=== PATIENT | male | born 2000 | race Caucasian/White ===

== ENCOUNTER 2022-05-04 18:49 | Emergency (ER) | payer OTHER, SELFPAY ==
[2022-05-04] VITALS (10 sets, daily range): BP systolic 135–177; BP diastolic 74–101; PULSE 78–87; RESP 20; TEMP 37.1; O2SAT 99–100; BMI 20.6
--- NOTE | 2022-05-04 | CRLHL7_ITS ---
For Patients: As a result of the Cures Act, medical imaging exams and procedure reports are released immediately into your electronic medical record. You may view this report before your referring provider. If you have questions, please contact your health care provider. INDICATION: Injury. TECHNIQUE: Three views of the right wrist. COMPARISON: None available. FINDINGS: No dislocation or acute fracture. Multiple irregular metallic foreign bodies of varying size in the soft tissues overlying the radial styloid, long finger proximal phalanx radial base, and ring finger middle phalanx volar aspect. Numerous additional tiny metallic foreign bodies scattered throughout the long finger soft tissues. IMPRESSION: Multiple retained metallic foreign bodies, as above. No acute osseous abnormality. Dictated by Yomi Dunlap MD @ 05/04/2022 7:56:20 PM Dictated by: Yomi Dunlap MD @ 05/04/2022 19:56:29 (Electronically Signed)
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
[2022-05-04] MEDS: TETANUS/DIPHTH/PERTUSSIS 0.5 ML SYRINGE IM (19:17)
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
[2022-05-04] MEDS: fentaNYL 100 MCG/2 ML inj 50 MCG IVP (19:58)
[2022-05-04] MEDS: ONDANSETRON 2 MG/ML inj 4 MG IVP (19:58)
== END 2022-05-04 20:10 | disposition short-term general hospital (02) ==
PROVIDERS: Emergency Provider Family Medicine
DX: T20.00XA Burn of unspecified degree of head, face, and neck, unspecified site, initial encounter (principal); S51.842A Puncture wound with foreign body of left forearm, initial encounter; W40.0XXA Explosion of blasting material, initial encounter
CPT/HCPCS: 71045; 73110; 90715; 94761; 96372; 96374; 96375; 99284; 99291; J2405; J3010

== ENCOUNTER 2022-05-04 20:07 | Outpatient (CLI) | payer OTHER, SELFPAY | END 2022-05-04 20:08 | disposition home or self-care (01) | LOC: AMB 05-25 11:17 | PROVIDERS: PCP Family Medicine; Visit Provider Family Medicine | DX: T20.16XA Burn of first degree of forehead and cheek, initial encounter (principal); S41.142A Puncture wound with foreign body of left upper arm, initial encounter; S21.149A Puncture wound with foreign body of unspecified front wall of thorax without penetration into thoracic cavity, initial encounter; S21.142A Puncture wound with foreign body of left front wall of thorax without penetration into thoracic cavity, initial encounter; S31.149A Puncture wound of abdominal wall with foreign body, unspecified quadrant without penetration into peritoneal cavity, initial encounter; S61.541A Puncture wound with foreign body of right wrist, initial encounter; S61.242A Puncture wound with foreign body of right middle finger without damage to nail, initial encounter; S61.244A Puncture wound with foreign body of right ring finger without damage to nail, initial encounter; W40.8XXA Explosion of other specified explosive materials, initial encounter; W26.8XXA Contact with other sharp object(s), not elsewhere classified, initial encounter; W45.8XXA Other foreign body or object entering through skin, initial encounter | CPT/HCPCS: A0425; A0427 ==

== ENCOUNTER 2022-05-15 13:15 | Outpatient (CLI) | payer OTHER, SELFPAY | END 2022-05-15 13:16 | disposition home or self-care (01) | LOC: WOUND 13:16 | PROVIDERS: PCP Family Medicine; Visit Provider Nurse Practitioner Family | DX: S31.141A Puncture wound of abdominal wall with foreign body, left upper quadrant without penetration into peritoneal cavity, initial encounter (principal); S31.144A Puncture wound of abdominal wall with foreign body, left lower quadrant without penetration into peritoneal cavity, initial encounter; S41.142A Puncture wound with foreign body of left upper arm, initial encounter; S41.042A Puncture wound with foreign body of left shoulder, initial encounter; W40.8XXA Explosion of other specified explosive materials, initial encounter; F84.5 Asperger's syndrome | CPT/HCPCS: 11042; 11043; 99213 ==

== ENCOUNTER 2022-05-15 14:55 | Outpatient (CLI) | payer OTHER, SELFPAY ==
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
== END 2022-05-15 14:56 | disposition home or self-care (01) ==
PROVIDERS: PCP Family Medicine; Visit Provider Nurse Practitioner Family
DX: S41.002A Unspecified open wound of left shoulder, initial encounter (principal)
CPT/HCPCS: 71045; 73030

== ENCOUNTER 2022-05-22 08:14 | Outpatient (CLI) | payer OTHER, SELFPAY | END 2022-05-22 08:15 | disposition home or self-care (01) | LOC: WOUND 08:14 | PROVIDERS: PCP Family Medicine; Visit Provider Nurse Practitioner Family | DX: S31.141A Puncture wound of abdominal wall with foreign body, left upper quadrant without penetration into peritoneal cavity, initial encounter (principal); S31.144A Puncture wound of abdominal wall with foreign body, left lower quadrant without penetration into peritoneal cavity, initial encounter; S41.142A Puncture wound with foreign body of left upper arm, initial encounter; S41.042A Puncture wound with foreign body of left shoulder, initial encounter; W40.8XXA Explosion of other specified explosive materials, initial encounter; F84.5 Asperger's syndrome | CPT/HCPCS: 11042 ==

== ENCOUNTER 2022-05-29 08:16 | Outpatient (CLI) | payer OTHER, SELFPAY | END 2022-05-29 08:17 | disposition home or self-care (01) | LOC: WOUND 08:16 | PROVIDERS: PCP Family Medicine; Visit Provider Physician Assistant Surgical | DX: S31.144A Puncture wound of abdominal wall with foreign body, left lower quadrant without penetration into peritoneal cavity, initial encounter (principal); S31.141A Puncture wound of abdominal wall with foreign body, left upper quadrant without penetration into peritoneal cavity, initial encounter; S41.142A Puncture wound with foreign body of left upper arm, initial encounter | CPT/HCPCS: 11042; 11043 ==

== ENCOUNTER 2022-06-05 08:23 | Outpatient (CLI) | payer OTHER, SELFPAY | END 2022-06-05 08:24 | disposition home or self-care (01) | LOC: WOUND 08:23 | PROVIDERS: PCP Family Medicine; Visit Provider Nurse Practitioner Family | DX: S31.141A Puncture wound of abdominal wall with foreign body, left upper quadrant without penetration into peritoneal cavity, initial encounter (principal); S41.142A Puncture wound with foreign body of left upper arm, initial encounter | CPT/HCPCS: 11042 ==

== ENCOUNTER 2022-06-12 08:21 | Outpatient (CLI) | payer OTHER, SELFPAY | END 2022-06-12 08:22 | disposition home or self-care (01) | LOC: WOUND 08:21 | PROVIDERS: PCP Family Medicine; Visit Provider Nurse Practitioner Family | DX: S31.141A Puncture wound of abdominal wall with foreign body, left upper quadrant without penetration into peritoneal cavity, initial encounter (principal); S41.142A Puncture wound with foreign body of left upper arm, initial encounter | CPT/HCPCS: 11042 ==

== ENCOUNTER 2022-06-19 08:30 | Outpatient (CLI) | payer OTHER, SELFPAY | END 2022-06-19 08:31 | disposition home or self-care (01) | LOC: WOUND 08:31 | PROVIDERS: PCP Family Medicine; Visit Provider Nurse Practitioner Family | DX: S31.141A Puncture wound of abdominal wall with foreign body, left upper quadrant without penetration into peritoneal cavity, initial encounter (principal); S41.142A Puncture wound with foreign body of left upper arm, initial encounter | CPT/HCPCS: 11042; 97597 ==

== ENCOUNTER 2022-06-29 08:14 | Outpatient (CLI) | payer OTHER, SELFPAY | END 2022-06-29 08:15 | disposition home or self-care (01) | LOC: WOUND 08:14 | PROVIDERS: PCP Family Medicine; Visit Provider Nurse Practitioner Family | DX: S31.144A Puncture wound of abdominal wall with foreign body, left lower quadrant without penetration into peritoneal cavity, initial encounter (principal); S31.141A Puncture wound of abdominal wall with foreign body, left upper quadrant without penetration into peritoneal cavity, initial encounter; S41.142A Puncture wound with foreign body of left upper arm, initial encounter | CPT/HCPCS: 99212 ==

== ENCOUNTER 2022-11-07 13:36 | Emergency (ER) | payer OTHER, SELFPAY ==
[2022-11-07 13:44] VITALS: BP 127/94; PULSE 88; RESP 18; TEMP 36.4; O2SAT 99; BMI 18.1
--- NOTE | 2022-11-07 14:26 | ED.NURSE ---
Pt provided UA and cooperative with blood draw.
[2022-11-07 14:36] LABS: Appearance Urine Clear (Clear); Bilirubin Urine Negative (Negative); Blood Urine Negative (Negative); Color Urine Yellow (Yellow); Glucose Urine Negative (Negative); Ketones Urine Negative (Negative); Leukocyte Esterase Urine Negative (Negative); Nitrite Urine Negative (Negative); Protein Urine Negative (Negative); Specific Gravity Urine 1.015 (1.000-1.030); Urobilinogen Urine 0.2 (0.2-1.0)
[2022-11-07 14:46] LABS: Amphetamine Screen Urine Negative (Negative); Barbiturate Screen Urine Negative (Negative); Benzodiazepines Screen Urine Negative (Negative); Cannabinoid Screen Urine Negative (Negative); Cocaine Screen Urine Negative (Negative); Methadone Screen Urine Negative (Negative); Methamphetamines Screen Urine Negative (Negative); Opiate Screen Urine Negative (Negative); Oxycodone Screen Urine Negative (Negative); Phencyclidine Screen Urine Negative (Negative); Tricyclic Antidepressant Urine Negative (Negative)
[2022-11-07 14:47] LABS: RBC Urine 0-2 (0-2); WBC Urine 0-2 (0-5)
[2022-11-07 14:57] LABS: Acetaminophen* < 10.0 ug/mL (10.0-30.0); Salicylate* < 1.0 mg/dL (1.0-10)
[2022-11-07 14:58] LABS: Ethanol* < 0.01 % (0.01-0.03)
--- NOTE | 2022-11-07 15:15 | ED.NURSE ---
Pt provided with meal tray, pt ate entire meal tray. Pt requesting a sudoku to do; pt provided with sudoku puzzle to complete.
--- NOTE | 2022-11-07 15:45 | ED.NURSE ---
Pt's dad, Carlos, called to check on pt. Pt verbal okay'd functional tester typewriters to update pt's dad on status and plan. Update provided. Phone numbers : Carlos (dad) # [phone], Nury (mom) # [phone].
--- NOTE | 2022-11-07 15:54 | ED.GENADULT ---
HPI - General Adult General Date Seen: 11/07/22 Chief complaint: Altered Mental Status Stated complaint: Mental Health Time Seen by Provider: 11/07/22 13:43 Source: patient Mode of arrival: other (Police) Limitations: no limitations History of Present Illness HPI narrative: Patient is a 22-year-old brought in by police due to concerns of suicidal ideation. He tells me that yesterday, he was feeling despondent over the break-up with his girlfriend that happened the day before, on Sunday night. They had been dating apparently for 2 and half years, and she abruptly ended the relationship. He does not provide further details on that. He does say that yesterday, her stepmother contacted him and told him that he if he tried to contact her again they would file a restraining order. He says that he has been trying to contact her to find out what he did wrong so that he does not make this a mistake again. He notes that he has autism and so he would find that information useful. In any case, he says yesterday all of this came to a head and he decided that he wanted to end things. He says he placed a call to police with a threat, hoping that they would track him down and use force, essentially suicide by law force. However, he says that they were unable to find him yesterday. They found him today at work, but by today he says that the feeling has passed and he is no longer suicidal. He did tell the nurse he had a backup plan yesterday of eating the coral in his aquarium which he says is toxic. He did not go through with that plan. He says that his suicidal things usually pass within a day or to. He has been hospitalized for suicidal ideation in the past, and says that that has typically been the pattern for him in the past as well. He takes a number of mental health related and autism related medications but he does not know the names. He lives with his parents and sister. He does not think that they are aware of what is been going on over the past day or 2, but says that generally everyone in the family gets along well. He drinks occasionally but denies any significant alcohol use, denies any other substance use. Denies any other self-harm behavior over the past couple of days. While he is still upset about the break-up, he denies any aggressive or injurious feelings toward his ex-girlfriend. Related Data Home Medications Medication Instructions Recorded Confirmed aripiprazole 2 mg tablet mg 05/04/22 05/10/22 citalopram 20 mg tablet mg 05/04/22 05/10/22 methylphenidate HCl 36 mg mg PO 05/04/22 05/10/22 tablet,extended release 24 hr (Concerta) olanzapine 10 mg tablet mg 05/04/22 05/10/22 olanzapine 5 mg tablet mg 05/04/22 05/10/22 Allergies Allergy/AdvReac Type Severity Reaction Status Date / Time No Known Drug Allergies Allergy Verified 11/07/22 13:49 Review of Systems Status of ROS: Reports: 6 or more systems reviewed and unremarkable except as noted in History and below [facility] Medical History Blast injury ?T14.8XXA - Other injury of unspecified body region, initial encounter (ICD-10) Social History Smoking Status: Never smoker How often do you have a drink containing alcohol: 2-3 times a week How many standard drinks containing alcohol do you have on a typical day: 1 or 2 How often do you have six or more drinks on one occasion: Never AUDIT-C Alcohol total score: 3 Non-prescribed substance use: denies use service: No Exam Narrative: Exam Narrative: Vital signs as noted above. In general, an alert, nontoxic male. Well groomed, good eye contact. Head: Normocephalic, atraumatic. Eyes: Pupils are equal reactive. Extraocular movements are full. Conjunctivae are normal. ENT: Mucous membranes are moist. Neck: Supple Heart: Regular rate and rhythm. Lungs: Clear bilaterally. No increased work of breathing, crackles or wheezes. Abdomen: Soft and nontender. Extremities: Well perfused. Neurologic: Patient is alert and oriented to person and place. Speech is fluent. Face is symmetric. Moves all extremities equally. Affect: Flat Skin: Warm and dry. Well perfused. Const: Vital Signs, click to edit/add: Vital Signs - 24 hr 11/07/22 13:44 11/07/22 17:55 Temperature 97.6 F Pulse Rate [Right Pulse Oximeter] 88 77 Respiratory Rate 18 Blood Pressure [Ri ght Upper Arm] 127/94 H 142/81 H Pulse Oximetry 99 97 Oxygen Delivery Me thod Room Air Room Air Documenting provider has reviewed patient's vital signs: yes Course Course Hospital Course: Patient spoke with the DEC cardiopulmonary technician and eeg tech. She and I are in agreement that at this time he does not pose a risk to himself or others. The issue seems to have been yesterday and he now seems to feel better. She was able to arrange counseling for him on , and he and his parents feel comfortable with him going home. Return at any time for new concerns. I did check labs given the that yesterday he was feeling significantly suicidal, Tylenol and aspirin levels are negative, drug screen and alcohol levels negative as well. Vital Signs Vital signs: Initial Vital Signs Temperature 97.6 F 11/07/22 13:44 Temperature Source Temporal Artery Scan 11/07/22 13:44 Pulse Rate 88 11/07/22 13:44 Pulse Rhythm Regular 11/07/22 13:44 Pulse Strength 3+ Normal 11/07/22 13:44 Respiratory Rate 18 11/07/22 13:44 Blood Pressure 127/94 H 11/07/22 13:44 Blood Pressure Mean 105 11/07/22 13:44 Blood Pressure Position Supine 11/07/22 13:44 Pulse Oximetry 99 11/07/22 13:44 Oxygen Delivery Method Room Air 11/07/22 13:44 Vital Signs Temperature 97.6 F 11/07/22 13:44 Pulse Rate 88 11/07/22 13:44 Respiratory Rate 18 11/07/22 13:44 Blood Pressure 127/94 H 11/07/22 13:44 Pulse Oximetry 99 11/07/22 13:44 Oxygen Delivery Method Room Air 11/07/22 13:44 Temperature 97.6 F 11/07/22 13:44 Pulse Rate 77 11/07/22 17:55 Respiratory Rate 18 11/07/22 13:44 Blood Pressure 142/81 H 11/07/22 17:55 Pulse Oximetry 97 11/07/22 17:55 Oxygen Delivery Method Room Air 11/07/22 17:55 Medical Decision Making Lab Data Labs: Lab Results 11/07/22 11/07/22 Range/Units 14:25 14:28 Urine Color Yellow (Yellow) Urine Appearance Clear (Clear) Urine pH 7.0 (5.0-8.5) Ur Specific [place] 1.015 (1.000-1.030) Urine Protein Negative (Negative) Urine Glucose (UA) Negative (Negative) Urine Ketones Negative (Negative) Urine Blood Negative (Negative) Urine Nitrite Negative (Negative) Urine Bilirubin Negative (Negative) Urine Urobilinogen 0.2 (0.2-1.0) Ur Leukocyte Esterase Negative (Negative) Urine RBC 0-2 (0-2) Urine WBC 0-2 (0-5) Ur Squamous Epith Cells None (None-Few) Urine Bacteria None (None) Salicylates < 1.0 L (1.0-10) mg/dL Urine Opiates Screen Negative (Negative) Ur Oxycodone Screen Negative (Negative) Urine Methadone Screen Negative (Negative) Ur Propoxyphene Screen Negative (Negative) Acetaminophen < 10.0 L (10.0-30.0) ug/mL Ur Barbiturates Screen Negative (Negative) U Tricyclic Antidepress Negative (Negative) Ur Phencyclidine Scrn Negative (Negative) Ur Amphetamines Screen Negative (Negative) U Methamphetamines Scrn Negative (Negative) U Benzodiazepines Scrn Negative (Negative) Urine Cocaine Screen Negative (Negative) U Marijuana (THC) Screen Negative (Negative) Ur Drug Screen Comment See Note Ethyl Alcohol < 0.01 L (0.01-0.03) % Discharge Plan Discharge Clinical Impression: History of suicidal ideation Patient Disposition: Home w/ Parent or Adult Condition: Improved Instructions: Depression (ED) Additional Instructions: Follow-up as planned with the counselor on . Return at any time if you have worsening difficulties. Prescriptions: No Action olanzapine 5 mg tablet Patient Comments: TAKE 1 TABLET BY MOUTH EVERY DAY DIRECTED olanzapine 10 mg tablet Patient Comments: TAKE 1 TABLET BY MOUTH EVERYDAY AT BEDTIME methylphenidate HCl [Concerta] 36 mg tablet extended release 24hr PO Patient Comments: TAKE 2 TABLETS BY MOUTH EVERY DAY aripiprazole 2 mg tablet Patient Comments: TAKE 1 TABLET BY MOUTH EVERY DAY IN THE MORNING. STOP MORNING OLANZAPINE citalopram 20 mg tablet Patient Comments: 1 TABLET DIRECTED DAILY Follow Up/Referrals: Colton Levi MD [Primary Care Provider] - Stand Alone Forms: [employer] Info Instructions
--- NOTE | 2022-11-07 16:43 | ED.NURSE ---
[facility] assessment started.
[2022-11-07 17:55] VITALS: BP 142/81; PULSE 77; O2SAT 97
== END 2022-11-07 17:58 | disposition home or self-care (01) ==
PROVIDERS: Emergency Provider Emergency Medicine; PCP Family Medicine
DX: R45.851 Suicidal ideations (principal)
CPT/HCPCS: 36415; 80143; 80179; 80306; 81001; 82077; 99284

== ENCOUNTER 2023-03-02 13:59 | Emergency (ER) | payer OTHER, SELFPAY ==
[2023-03-02 14:20] VITALS: BP 130/81; PULSE 89; RESP 18; TEMP 36.3; O2SAT 99; BMI 21.2
--- NOTE | 2023-03-02 16:11 | ED.NURSE ---
Report obtained from booking police officer, who states pt has been making threats of blowing up home and hurting himself and family. law enforcement officer states department is aware that bomb paraphernalia and dangerous substances are at pt's home. Tow Truck Driver and MD in room for pt assessment. Pt right away points at father and refuses to answer any questions asked of why pt is here today. Pt's father states pt recently hospitalized at [facility], and that family has been struggling with pt's emotional lability for last six months, when pt went through breakup with girlfriend. Pt states he does not have friends, and pt's father states he is on the autism spectrum and has struggled with relationships with friends. MD asks pt if he will plan on hurting himself and pt goes into extensive plans of how to blow up house. Pt also goes into extensive detail of how he has obtained dangerous and radioactive substances online (uranium, plutonium 129, and thorium) and states they are hidden in a secret spot in pt's home. When asked about breakup, pt is immediately tearful, and is unable to talk about relationship. When asked if pt wants to hurt others, he shakes head. MD states that it sounds like pt is having trouble coping emotionally with his past breakup, and pt nods. Pt's father is concerned about pt's medication dosing and that pt was taken off of all other medications, besides olanzapine 5 mg. Pt is hesitantly agreeable to plan to seek inpatient treatment to overcome current mental health crisis and then set up follow-up care for pt to continue processing past breakup and to continue taking care of his mental health. Pt agreeable to food, leaving urine sample, and having lab work done. Pt laying in bed, folding origami.
[2023-03-02 16:18] LABS: Amphetamine Screen Urine Negative (Negative); Barbiturate Screen Urine Negative (Negative); Benzodiazepines Screen Urine Negative (Negative); Cannabinoid Screen Urine Negative (Negative); Cocaine Screen Urine Negative (Negative); Methadone Screen Urine Negative (Negative); Methamphetamines Screen Urine Negative (Negative); Opiate Screen Urine Negative (Negative); Oxycodone Screen Urine Negative (Negative); Phencyclidine Screen Urine Negative (Negative); Tricyclic Antidepressant Urine Negative (Negative)
[2023-03-02 16:27] LABS: Basophils Absolute Auto 0.02 K/uL (0.00-0.30); Basophils Percent Auto 0.4 % (0.0-3.0); Eosinophils Absolute Auto 0.05 K/uL (0.00-0.50); Hematocrit 46.2 % (37.0-53.0); Hemoglobin* 15.7 gm/dL (13.5-17.5); Immature Granulocytes Abs Auto 0.01 K/uL (0.00-0.30); Immature Granulocytes Pct Auto 0.2 %; Lymphocytes Percent Auto 16.8 % (20-44); Mean Corpuscular HGB Conc 34 gm/dL (32-36); Mean Corpuscular Hemoglobin 29 pg (26-34); Mean Corpuscular Volume 84 fL (80-100); Monocytes Percent Auto 9.2 % (0.0-11.0); Neutrophils Percent Auto 72.4 % (42.0-72.0); Platelet Count* 175 K/uL (140-440); RDW Coefficient of Variation % 12.2 % (11.5-15.5); Red Blood Count 5.51 m/uL (4.30-5.90); White Blood Count* 4.77 K/uL (4.50-11.00)
--- NOTE | 2023-03-02 16:29 | ED.GENADULT ---
HPI - General Adult General Date Seen: 03/02/23 Chief complaint: Psychiatric Problem/Disorder Stated complaint: psych Time Seen by Provider: 03/02/23 14:38 History of Present Illness HPI narrative: 22-year-old male brought to the ER today by police on a transport hold. History is obtained in part from the police transport hold paperwork, in part from the patient's father, in part from the patient, and some from recent records from [facility]. He apparently has a history of autism spectrum dating back his entire life. Also possibly oppositional defiant disorder, depression, (or possibly bipolar per his father). He had been admitted him in [place] a couple of years ago. He has a long-term outpatient psychiatrist, in [place]. Patient and his father were not able to tell me the name, but from the records from [place] it looks like hisprovider is Betsey Anderson with [facility] in [place]. He has been on several psych meds recently. His father felt like they were making him worse. Father notes that he has had deteriorating mental health for about the past about 6 months or so? ever since he went through a break-up with his former girlfriend. he apparently had a mental health crisis that led to a to our stand off with police on February 13. Admitted at [facility] 02/14- Synopsis of her medical records as below: Apparently the patient had made some suicidal threats. Ultimately there was a 2 hour standoff with police before he went with them. [place] [facility] [place] transferred for inpatient mental health admission at [facility]. Father reports that while in the hospital in [place] he did well. They took him off most of his medications. He is now only on Zyprexa. Apparently they were treating him for alcohol abuse, also for his mental health disorders. Apparently the provider's joel [place] made a petition for commitment through the [facility], but that petition was denied. According to some of the records, the patient has a long-time fascination with explosives and has access to tools and materials that are potentially harmful to self or others He was discharged on February 19. Father notes that he has been struggling since discharge. He is now only on Zyprexa. He was started on a low-dose side of concerned that it might interact with some of the other meds that were still in his system. His father feels like we might need to increase his dose of Zyprexa. Apparently he had of 1st virtual visit with a new counselor, Una Maciel, through and [facility] clinic yesterday. It sounds like this visit was not helpful. Turns out this counselor is a chemical dependency counselor, not a mental health counselor. Patient is not willing or able to tell me what was discussed during the visit yesterday but apparently it was not helpful. The patient has a previous interactions with the [place] [employer]. Apparently the police called today and asked the patient to come down to the police station and to check in with them When he went there, the apparently took him into custody and brought him here to the [facility] on a police transport hold. According to the police transport hold, the patient is posing a risk to himself or others. He is apparently has access to expose the materials because he has a hobby of model [employer] making and [employer]. He also made a firearm to be trapped for his closet door a couple of weeks ago. He has also apparently Been able to order radioactive Thorium over the Internet and has it hit in somewhere in his house. per the police record, the patient released mustard gas in his home with an intent to kill himself and his family a month or 2 ago. He also rate a loaded gun tissue any 100 his closet on February 13. He apparently tried to injure himself with explosive on February 13. He purchased radioactive materials, including story M) and other materials for bone making. He had also threatened to kill himself and his family by reading the household appliance to cause an explosion. ( To me, the patient expresses that he has discovered that if the disabled the thermal couple on the furnace he will be able to open a captain airline pilot light, fill the house with gas, and have his home blow up by leaving a burning candle upstairs.) the patient also showed the police communications dispatcher a kaboom box today. also per the police transport hold, the patient also has displayed manipulative behavior in the past to avoid hospitalization /intervention. The police placed him on a hold and feel that he does pose a threat to himself and others. Per the patient, he says he does not want to be here. The thing we can do most help him is just let him go home again. he does not think any sort of mental treatment would be helpful. When we ask about how he is doing, he becomes tearful especially ask about the break-up with his girlfriend last October ( 4 months ago). Father endorses that he has had chronic suicidal ideation. Incongruously, the patient and his family were apparently preparing to leave on a family vacation to [place] today Related Data Home Medications Medication Instructions Recorded Confirmed aripiprazole 2 mg tablet mg 05/04/22 05/10/22 citalopram 20 mg tablet mg 05/04/22 05/10/22 methylphenidate HCl 36 mg mg PO 05/04/22 05/10/22 tablet,extended release 24 hr (Concerta) olanzapine 10 mg tablet mg 05/04/22 05/10/22 olanzapine 5 mg tablet mg 05/04/22 05/10/22 Allergies Allergy/AdvReac Type Severity Reaction Status Date / Time No Known Drug Allergies Allergy Verified 11/07/22 13:49 [facility] Medical History Blast injury ?T14.8XXA - Other injury of unspecified body region, initial encounter (ICD-10) Social History Smoking Status: Never smoker Do you use any of these nicotine containing products: None Second hand tobacco smoke exposure: No How often do you have a drink containing alcohol: 2-4 times a month How many standard drinks containing alcohol do you have on a typical day: 1 or 2 How often do you have six or more drinks on one occasion: Never AUDIT-C Alcohol total score: 2 Non-prescribed substance use: denies use service: No Exam Narrative: Exam Narrative: Constitutional: Appears well-developed and well-nourished. Alert. Conversant. Non toxic. HENT: Head: Atraumatic. Nose: Nose normal. Mouth/Throat: Oral mucosa is clear and moist. no trismus. Pharynx normal. Tonsils symmetric. No tonsillar enlargement, erythema, or exudate. Eyes: Conjunctivae normal. EOM normal. Pupils equal, round, and reactive to light. No scleral icterus. Neck: Normal range of motion. Neck supple. No tracheal deviation present. Cardiovascular: Normal rate, regular rhythm. No gallop. No friction rub. No murmur heard. Symmetric radial artery pulses Pulmonary/Chest: Effort normal. No stridor. No respiratory distress. No wheezes. No rales. No rhonchi . No tenderness. Abdominal: Soft. Bowel sounds normal. No distension. No mass. No tenderness. No rebound. No guarding. Musculoskeletal: RUE: Normal range of motion. No tenderness. No deformity LUE: Normal range of motion. No tenderness. No deformity RLE: Normal range of motion. No edema. No tenderness. No deformity LLE: Normal range of motion. No edema. No tenderness. No deformity Lymph: No cervical adenopathy. Neurological: Alert and oriented to person, place, and time. Normal strength. CN II-VII intact. No sensory deficit. GCS eye subscore is 4. GCS verbal subscore is 5. GCS motor subscore is 6. Normal coordination Skin: Skin is warm and dry. No rash noted. No pallor. Normal capillary refill. Psychiatric: Initially was somewhat defiant when brought in by police communications dispatcher. Then agreed to change into scrubs. When I enter the room his father is sitting in a chair by the door the patient is rolled onto his side, obviously not looking in his father. Patient makes a comment that he they are not family members anymore, indicating that he believes his father for being here in the ER today and that he does not want to be here. Most history is obtained from his father, as above. It sounds like he has had longstanding thoughts of suicide. He also has access to rocket tree material, explosive material, firearms, and radioactive material around the home. Father says he is concerned for the patient's safety as well as the safety of himself and other family members, but it sounds like this is all subacute to chronic. The says that patient has been in some ways doing better since he was discharged from [place] but in some ways still struggling. Despite all these swelling concerns, they are actually planning to leave for vacation today. Per the patient he is somewhat deflected of 1 and answering questions. He indicates that he has been able to obtain Thorium by ordering it over the Internet and also Plutonium. He says that he has been in person eating [employer] to order these materials. When I expressed my skepticism, father says that the patient's statements are true and that he does have those materials at home. Patient says that he is not suicidal today but that he has made plans to rhythm mom double up his house. It sounds like he wants to light a candle upstairs and leave the captain airline pilot light for the gas furnace on in the basement, this would allow the house to fill with gas, causing it to explode. Father confirms that a couple of weeks ago he did require firearm to be trapped his closet door. Apparently, the patient reiterated again today or lately and that the firearm still in place, however it is not loaded and therefore not actively dangerous. Const: Vital Signs, click to edit/add: Vital Signs - 24 hr 03/02/23 14:20 Temperature 97.4 F L Pulse Rate [Pulse Oximeter] 89 Respiratory Rate 18 Blood Pressure [Ri ght Upper Arm] 130/81 Pulse Oximetry 99 Oxygen Delivery Me thod Room Air Course Vital Signs Vital signs: Initial Vital Signs Temperature 97.4 F L 03/02/23 14:20 Temperature Source Temporal Artery Scan 03/02/23 14:20 Pulse Rate 89 03/02/23 14:20 Respiratory Rate 18 03/02/23 14:20 Blood Pressure 130/81 03/02/23 14:20 Blood Pressure Mean 97 03/02/23 14:20 Blood Pressure Position Supine 03/02/23 14:20 Pulse Oximetry 99 03/02/23 14:20 Oxygen Delivery Method Room Air 03/02/23 14:20 Vital Signs Temperature 97.4 F L 03/02/23 14:20 Pulse Rate 89 03/02/23 14:20 Respiratory Rate 18 03/02/23 14:20 Blood Pressure 130/81 03/02/23 14:20 Pulse Oximetry 99 03/02/23 14:20 Oxygen Delivery Method Room Air 03/02/23 14:20 Temperature 97.4 F L 03/02/23 14:20 Pulse Rate 89 03/02/23 14:20 Respiratory Rate 18 03/02/23 14:20 Blood Pressure 130/81 03/02/23 14:20 Pulse Oximetry 99 03/02/23 14:20 Oxygen Delivery Method Room Air 03/02/23 14:20 Medical Decision Making MDM Narrative Medical decision making narrative: 22-year-old male brought to the ER today by police on a police transport hold with concern that he poses a threat to himself and his family members. Has a complex past mental health history, as above. It sounds like he has has a longstanding diagnosis of autism spectrum disorder and also possibly depression or possibly bipolar. It does not sound like he has schizophrenia or psychosis. It sounds like his mental health is slowly deteriorating over the past several months ever since he had a break-up with his girlfriend. He has had some chronic suicidal thoughts and also has had plans but has never made specific action on them to commit suicide. He did however make a to be trap out of a firearm tissue to anyone who opens his closet door. He seems to lack insight about the dangerousness of this activity (for instance, if it were to trigger an accidental discharge bleeding to accidental injury). He has also been researching ways to follow-up as house and kill himself and his family. His father also endorses that he has significant intelligence and does have the ability to follow through on his plans. However it is unclear whether he would truly act. Reviewed today it sounds like he came to please attention today after he had an interaction with a new therapist yesterday. Police brought him here and are expecting their concern for his safety and that of his family. They feel that he needs a hold and inpatient treatment. The patient is initially very withdrawn and not providing much history. When he has become more interactive he is somewhat minimizing his symptoms. He tries to bargain saying that he will turn over his firearm and his Thorium to his father. However I think these are attempts at manipulation. He is very withdrawn and not really willing to participate in his care. His father indicates that he has had trouble following through with outpatient treatments in the past. The patient was seen by [facility]. That provider and myself both have misgivings. We believe this patient does pose a threat to himself and his family. Therefore we did place him on a 72 hour hold here in the ER tonight on 03/02. Laboratory workup was undertaken. It is reassuring. With reasonable clinical compensate think the patient is medically clear for inpatient mental health admission. We have faxed information to the inpatient mental health treatment facility at [facility] (where the patient was recently hospitalized). Due to IT difficulties, their response has been delayed. We are awaiting the response. We are told that they do have a bed and may potentially be able to accept this patient. DEC counselor is also calling other facilities in the region to see about other availability. At this time the patient and his family are aware that he will be boarding here in the ER until an appropriate inpatient mental health placement can be arranged. Discussed with my oncoming partner, Dr. Kaur. He will monitor the patient here in the ER and tell appropriate inpatient mental health placement can be arranged. Lab Data Labs: Lab Results 03/02/23 03/02/23 Range/Units 16:00 16:20 WBC 4.77 (4.50-11.00) K/uL RBC 5.51 (4.30-5.90) m/uL Hgb 15.7 (13.5-17.5) gm/dL Hct 46.2 (37.0-53.0) % MCV 84 (80-100) fL MCH 29 (26-34) pg MCHC 34 (32-36) gm/dL RDW Coeff of Jaqueline 12.2 (11.5-15.5) % Plt Count 175 (140-440) K/uL Neut % (Auto) 72.4 H (42.0-72.0) % Lymph % (Auto) 16.8 L (20-44) % [place] % (Auto) 9.2 (0.0-11.0) % Eos % (Auto) 1.0 (0.0-7.0) % Baso % (Auto) 0.4 (0.0-3.0) % Neut # (Auto) 3.50 (1.7-7.0) K/uL Lymph # (Auto) 0.80 L (0.90-2.90) K/uL [place] # (Auto) 0.40 (0.00-0.90) K/UL Eos # (Auto) 0.05 (0.00-0.50) K/uL Baso # (Auto) 0.02 (0.00-0.30) K/uL Abs Immat Gran (auto) 0.01 (0.00-0.30) K/uL Imm/Tot Granulo (auto) 0.2 % Sodium 140 (135-149) mmol/L Potassium 4.2 (3.6-5.1) mmol/L Chloride 104 (96-114) mmol/L Carbon Dioxide 29 (20-32) mmol/L Anion Gap 7 (7-15) mEq/L BUN 14 (5-24) mg/dL Creatinine 0.8 (0.5-1.5) mg/dL Estimated Creat Clear 155.29 Estimated GFR 127 ml/min Glucose 67 (60-115) mg/dL Calcium 10.0 (8.4-10.6) mg/dL Total Bilirubin 1.7 H (0.1-1.5) mg/dL AST 25 (12-35) U/L ALT 22 (4-50) U/L Alkaline Phosphatase 69 (40-150) U/L Total Protein 8.0 (6.0-8.3) g/dL Albumin 4.8 (3.3-5.0) g/dL Salicylates < 1.0 L (1.0-10) mg/dL Urine Opiates Screen Negative (Negative) Ur Oxycodone Screen Negative (Negative) Urine Methadone Screen Negative (Negative) Ur Propoxyphene Screen Negative (Negative) Acetaminophen < 10.0 L (10.0-30.0) ug/mL Ur Barbiturates Screen Negative (Negative) U Tricyclic Antidepress Negative (Negative) Ur Phencyclidine Scrn Negative (Negative) Ur Amphetamines Screen Negative (Negative) U Methamphetamines Scrn Negative (Negative) U Benzodiazepines Scrn Negative (Negative) Urine Cocaine Screen Negative (Negative) U Marijuana (THC) Screen Negative (Negative) Ur Drug Screen Comment See Note Ethyl Alcohol < 0.01 L (0.01-0.03) % Discharge Plan Discharge Clinical Impression: Suicidal ideation, Autism Prescriptions: No Action olanzapine 5 mg tablet Patient Comments: TAKE 1 TABLET BY MOUTH EVERY DAY DIRECTED olanzapine 10 mg tablet Patient Comments: TAKE 1 TABLET BY MOUTH EVERYDAY AT BEDTIME methylphenidate HCl [Concerta] 36 mg tablet extended release 24hr PO Patient Comments: TAKE 2 TABLETS BY MOUTH EVERY DAY aripiprazole 2 mg tablet Patient Comments: TAKE 1 TABLET BY MOUTH EVERY DAY IN THE MORNING. STOP MORNING OLANZAPINE citalopram 20 mg tablet Patient Comments: 1 TABLET DIRECTED DAILY Follow Up/Referrals: Colton Levi MD [Primary Care Provider] -
[2023-03-02 16:31] LABS: Slide Review Reflex No
[2023-03-02 16:45] LABS: Albumin* 4.8 g/dL (3.3-5.0)
[2023-03-02 16:46] LABS: Chloride* 104 mmol/L (96-114); Potassium* 4.2 mmol/L (3.6-5.1); Sodium* 140 mmol/L (135-149)
[2023-03-02 16:48] LABS: Alkaline Phosphatase* 69 U/L (40-150); Anion Gap 7 mEq/L (7-15); Aspartate Amino Transferase* 25 U/L (12-35); Bilirubin Total* 1.7 mg/dL (0.1-1.5); Blood Urea Nitrogen* 14 mg/dL (5-24); Carbon Dioxide* 29 mmol/L (20-32); Creatinine* 0.8 mg/dL (0.5-1.5); Est. Creatinine Clearance* 155.29; Estimated Glomerular Filt Rate 127 ml/min
[2023-03-02 16:49] LABS: Alanine Aminotransferase* 22 U/L (4-50); Glucose* 67 mg/dL (60-115)
[2023-03-02 16:55] LABS: Acetaminophen* < 10.0 ug/mL (10.0-30.0); Ethanol* < 0.01 % (0.01-0.03); Salicylate* < 1.0 mg/dL (1.0-10)
--- NOTE | 2023-03-02 17:00 | ED.NURSE ---
Per pt and pt family, pt's therapist is CYNTHIA Gann at [facility] ([phone]).
--- NOTE | 2023-03-02 17:52 | ED.NURSE ---
DEC assessment completed. Mother and father at bedside. Drinks offered. Pt ate dinner and is laying in bed, drinking orange juice. Pt showing aligner typewriter sea turtle origami.
--- NOTE | 2023-03-02 18:22 | ED.NURSE ---
72 hour hold placed by . Pt's rights read to pt and signed. Call to [facility], pt's last inpatient facility ([phone]), to discuss placement option. Paperwork faxed to facility ([phone]) for review. Pt pleasant, in room with family, and aware of plan for inpatient hospitalization.
[2023-03-02 21:02] VITALS: BP 117/89; PULSE 64; RESP 18; O2SAT 97
--- NOTE | 2023-03-02 21:20 | ED.NURSE ---
Pt's mother wondering if pt can take night medication (zyprexa 5 mg). Okayed with . Juice and milk brought in to pt and family. Family updated that [facility] is still reviewing on possible placement. Pt pleasant and asks politely for drawing sheets and sudoku.
--- NOTE | 2023-03-02 21:34 | ED.NURSE ---
Call to [facility] for DEC assessment. States they will fax over shortly.
--- NOTE | 2023-03-02 22:12 | ED.NURSE ---
DEC assessment faxed to [facility]. [facility] still reviewing and will update us on placement once they review assessment.
[2023-03-02 23:00] VITALS: TEMP 37.1
[2023-03-02 23:43] LABS: Appearance Urine Clear (Clear); Bilirubin Urine Negative (Negative); Blood Urine Negative (Negative); Color Urine Yellow (Yellow); Glucose Urine Negative (Negative); Ketones Urine Negative (Negative); Leukocyte Esterase Urine Negative (Negative); Nitrite Urine Negative (Negative); Protein Urine Negative (Negative); Specific Gravity Urine 1.015 (1.000-1.030); Urobilinogen Urine 0.2 (0.2-1.0); pH Urine 6.5 (5.0-8.5)
[2023-03-02 23:49] LABS: SARS PCR* Negative SARS-CoV-2 (Negative)
--- NOTE | 2023-03-03 00:08 | ED.NURSE ---
[facility] declined. [facility] reviewing pt's reports. Pt's dad at bedside. Pt brought hot cocoa and cereal, watching TV with dad.
--- NOTE | 2023-03-03 00:56 | ED.NURSE ---
[facility] unable to take pt at this time d/t shortage of staff to review placement. Instructed to call back at [phone] ([phone]) and let them know if we are still looking for placement. They will review at that time. [facility] states they can review again on 03/03 and may have openings. [facility] currently closed, waitlisting pts. Pt and pt's father state they do not want to go back to [facility]' d/t bad previous experience.
[2023-03-03 01:30] VITALS: BP 94/53; PULSE 66; RESP 12; TEMP 36.6; O2SAT 95
[2023-03-03 10:35] VITALS: BP 105/63; PULSE 62; RESP 16; TEMP 37.7; O2SAT 98
--- NOTE | 2023-03-03 11:34 | CRLHL7_ITS ---
For Patients: As a result of the Century Cures Act, medical imaging exams and procedure reports are released immediately into your electronic medical record. You may view this report before your referring provider. If you have questions, please contact your health care provider. Indication: Altered mental status. Technique: CT of the brain was performed without intravenous contrast. Comparison: None relevant available at this institution. Findings: No acute blurring of the garcía-white differentiation. There is no intracranial hemorrhage. The ventricles are proportionate to the cerebral sulci. The 4th ventricle is midline. Basal cisterns appear patent. No abnormal extra-axial fluid collection identified. There is no intracranial mass, mass effect or midline shift identified. No depressed calvarial fracture. Impression: No acute intracranial process. Please note that all CT scans at this facility use dose modulation, iterative reconstruction, and/or weight-based dosing when appropriate to reduce radiation dose to as low as reasonably achievable. Dictated by Shukri Mcneill MD @ 03/03/2023 12:46:18 PM (Electronically Signed)
--- NOTE | 2023-03-03 11:54 | ED.NURSE ---
was told that there is very limited mental health beds in the state and [facility] may be his only possibility. family concerned about something being wrong like a brain tumor or physical type imbalance causing his behavior. dr sexton did order a ct scan to help with ruling this out. when asked about his thoughts of ending his life he shakes his head no, father shakes yes.
[2023-03-03 14:28] VITALS: BP 113/80; PULSE 77; RESP 18; TEMP 36.5; O2SAT 99
--- NOTE | 2023-03-03 17:17 | ED.NURSE ---
has ordered a meal. aware that he will be leaving around 2030. Tatiana will be given tonight-own med, and father has been keeping safe; will send this with transport. declined offer of shower.
--- NOTE | 2023-03-03 20:22 | ED.NURSE ---
Pt took one 5mg tab Zyprexa before leaving with ambulance crew.
--- NOTE | 2023-03-03 20:41 | ED.NURSE ---
Pt transferring with [facility] crew to [place] for mental health care. Report was given and pt items were also given to [facility] crew. Vitals were taken on pt and pt is now comfortable with transferring to [place] for care. Parents are with pt before he transfers and they will [facility] in the morning for an update.
--- NOTE | 2023-03-03 20:46 | ED.NURSE ---
called report to the needs department at [facility] and to let them know that patient was on his way to them at this time. Pt is going to [address] [facility] nurse is TOBI Soliz.
== END 2023-03-03 20:50 | disposition other institution (70) ==
PROVIDERS: Emergency Medicine Emergency Medical Services; Emergency Provider Emergency Medicine; PCP Family Medicine
DX: R45.851 Suicidal ideations (principal); F84.0 Autistic disorder
CPT/HCPCS: 36415; 70450; 80053; 80143; 80179; 80306; 81003; 82077; 84443; 85025; 87635; 99284; 99285

== ENCOUNTER 2023-04-10 13:22 | Outpatient (CLI) | payer OTHER, SELFPAY | END 2023-04-10 13:23 | disposition home or self-care (01) | PROVIDERS: PCP Family Medicine; Visit Provider Family Medicine | DX: Z01.818 Encounter for other preprocedural examination (principal); F32.A Depression, unspecified; Z13.29 Encounter for screening for other suspected endocrine disorder; Z13.21 Encounter for screening for nutritional disorder | CPT/HCPCS: 82306; 82652; 84443 ==

== ENCOUNTER 2025-01-23 09:26 | Outpatient (CLI) | payer OTHER, BC, SELFPAY ==
[2025-01-23 10:27] LABS: Hematocrit 48.8 % (37.0-53.0); Hemoglobin* 17.1 gm/dL (13.5-17.5); Immature Granulocytes Abs Auto 0.01 K/uL (0.00-0.30); Immature Granulocytes Pct Auto 0.2 %; Lymphocytes Absolute Auto 1.23 K/uL (0.90-2.90); Mean Corpuscular HGB Conc 35 gm/dL (32-36); Mean Corpuscular Hemoglobin 29 pg (26-34); Mean Corpuscular Volume 81 fL (80-100); RDW Coefficient of Variation % 12.2 % (11.5-15.5); Red Blood Count 6.01 m/uL (4.30-5.90); White Blood Count* 4.86 K/uL (4.50-11.00)
[2025-01-23 10:49] LABS: Slide Review Reflex No
[2025-01-23 10:52] LABS: Albumin* 4.8 g/dL (3.3-5.0); Chloride* 105 mmol/L (96-114)
[2025-01-23 10:53] LABS: Potassium* 4.3 mmol/L (3.6-5.1); Sodium* 139 mmol/L (135-149)
[2025-01-23 10:55] LABS: Alanine Aminotransferase* 76 U/L (4-50); Anion Gap 9 mEq/L (7-15); Aspartate Amino Transferase* 54 U/L (12-35); Blood Urea Nitrogen* 14 mg/dL (5-24); Carbon Dioxide* 25 mmol/L (20-32); Creatinine* 1.1 mg/dL (0.5-1.5); Estimated Glomerular Filt Rate 95 ml/min; Total Protein* 7.7 g/dL (6.0-8.3)
[2025-01-23 10:56] LABS: Alkaline Phosphatase* 79 U/L (40-150); Bilirubin Total* 2.1 mg/dL (0.1-1.5); Calcium* 9.7 mg/dL (8.4-10.6); Cholesterol* 186 mg/dL (90-199); Glucose* 95 mg/dL (60-115); HDL Cholesterol* 23 mg/dL (>=40)
[2025-01-23 11:11] LABS: Triglycerides* 591 mg/dL (40-149)
[2025-01-23 11:13] LABS: Vitamin D 25 Hydroxy* 32 ng/mL (30-80)
== END 2025-01-23 09:27 | disposition home or self-care (01) ==
PROVIDERS: PCP Family Medicine; Visit Provider Nurse Practitioner Psychiatric/Mental Health
DX: F34.81 Disruptive mood dysregulation disorder (principal); Z13.6 Encounter for screening for cardiovascular disorders; Z13.21 Encounter for screening for nutritional disorder; Z13.1 Encounter for screening for diabetes mellitus; Z13.0 Encounter for screening for diseases of the blood and blood-forming organs and certain disorders involving the immune mechanism
CPT/HCPCS: 80053; 80061; 82306; 83036; 84443; 85025